=== PATIENT | female | born 1975 | race Caucasian/White ===

== ENCOUNTER 2022-01-16 22:23 | Emergency (ER) | payer OTHER ==
[2022-01-17] MEDS ORDERED: Diazepam 5 MG Tab PO ONE (00:27)
== END 2022-01-17 00:42 | disposition home or self-care (01) ==
LOC: MW.ED 22:23
DX: S13.9XXA Sprain of joints and ligaments of unspecified parts of neck, initial encounter (principal); M43.6 Torticollis; Z88.8 Allergy status to other drugs, medicaments and biological substances; Z91.040 Latex allergy status; Z88.2 Allergy status to sulfonamides; W10.9XXA Fall (on) (from) unspecified stairs and steps, initial encounter
CPT/HCPCS: 72125; 73000; 99284; A9270

== ENCOUNTER 2022-01-31 16:40 | Emergency (ER) | payer OTHER ==
[2022-01-31] MEDS ORDERED: predniSONE 20 MG Tab PO ONE (17:09)
[2022-01-31] MEDS ORDERED: diphenhydrAMINE 25 MG Cap PO ONE (17:09)
[2022-01-31] MEDS ORDERED: Famotidine 20 MG Tab PO ONE (17:10)
== END 2022-01-31 19:21 | disposition home or self-care (01) ==
LOC: MW.ED 16:40
DX: T78.2XXA Anaphylactic shock, unspecified, initial encounter (principal); F17.210 Nicotine dependence, cigarettes, uncomplicated; Z79.899 Other long term (current) drug therapy; Z91.040 Latex allergy status; Z88.2 Allergy status to sulfonamides
CPT/HCPCS: 99284; A9270

== ENCOUNTER 2022-02-25 00:34 | Emergency (ER) | payer OTHER | END 2022-02-25 02:24 | disposition home or self-care (01) | LOC: MW.ED 00:34 | DX: N81.4 Uterovaginal prolapse, unspecified (principal); F17.210 Nicotine dependence, cigarettes, uncomplicated; Z91.040 Latex allergy status; Z88.2 Allergy status to sulfonamides; Z91.048 Other nonmedicinal substance allergy status | CPT/HCPCS: 99282; 99283 ==

== ENCOUNTER 2022-04-17 06:52 | Day surgery (SDC) | payer OTHER ==
[~2022-04-17 06:52] MED LIST: Lactated Ringers 1,000 ML IV SCH
[2022-04-17] MEDS ORDERED: HYDROmorphone 1 MG/ML Syringe IVPUSH PRN ×2 (07:14→19:34)
[2022-04-17] MEDS ORDERED: Morphine 2 MG/ML SYRINGE IVPUSH PRN (07:14)
[2022-04-17] MEDS ORDERED: Metoclopramide 10 MG/2 ML SDV IVPUSH PRN (07:14)
[2022-04-17] MEDS ORDERED: Ondansetron 4 MG/2 ML SDV IVPUSH PRN (07:14)
[2022-04-17] MEDS ORDERED: Albuterol 0.083% 2.5 MG/3 ML Neb Soln NEB PRN (07:14)
[2022-04-17] MEDS ORDERED: Naloxone 0.4 MG/ML SDV IVPUSH PRN (07:14)
[2022-04-17] MEDS ORDERED: Scopolamine 1.5 MG Transdermal Patch TRDERM PRN (07:26)
[2022-04-17] MEDS ORDERED: Scopolamine 1.5 MG Transdermal Patch ONE (07:29)
[2022-04-17] MEDS ORDERED: Ropivacaine 0.5% 5 MG/ML 30 ML SDV ONE (07:33)
[2022-04-17] MEDS ORDERED: Famotidine 20 MG/2 ML SDV ONE (07:33)
[2022-04-17] MEDS ORDERED: Methylene Blue 50 MG/10 ML Ampule ONE (07:36)
[2022-04-17] MEDS ORDERED: Bupivacaine 0.25% 30 ML SDV ONE (07:37)
[2022-04-17] MEDS ORDERED: Propofol 200 MG/20 ML SDV ONE ×2 (07:46→10:31)
[2022-04-17] MEDS ORDERED: fentaNYL 250 MCG/5 ML SDV ONE ×2 (07:46→08:39)
[2022-04-17] MEDS ORDERED: fentaNYL 100 MCG/2 ML SDV ONE (09:12)
[2022-04-17] MEDS ORDERED: Fluorescein 5 ML Vial ONE (09:17)
[2022-04-17] MEDS ORDERED: Ketorolac 30 MG/ML SDV ONE (09:18)
[2022-04-17] MEDS ORDERED: Rocuronium Bromide 50 MG/5 ML Syringe ONE (09:18)
[2022-04-17] MEDS ORDERED: Sugammadex Sodium 200 MG/2 ML VIAL ONE (09:18)
[2022-04-17] MEDS ORDERED: Glycopyrrolate 0.2 MG/ML SDV ONE (09:18)
[2022-04-17] MEDS ORDERED: ePHEDrine 50 MG/ML SDV ONE (09:18)
[2022-04-17] MEDS ORDERED: Dexamethasone 4 MG/ML 5 ML MDV ONE (09:18)
[2022-04-17] MEDS ORDERED: Ondansetron 4 MG/2 ML SDV ONE (09:18)
[2022-04-17] MEDS ORDERED: ceFAZolin 2 GM Vial ONE (09:19)
[2022-04-17] MEDS ORDERED: HYDROmorphone 2 MG/ML Syringe ONE ×2 (09:47→19:39)
[2022-04-17] MEDS ORDERED: Morphine 4 MG/ML Syringe IVPUSH PRN (11:34)
[2022-04-17] MEDS ORDERED: Ibuprofen 600 MG Tab PO PRN (11:34)
[2022-04-17] MEDS ORDERED: Promethazine 25 MG/ML SDV IM PRN (11:34)
[2022-04-17] MEDS: fentaNYL 50 MCG/ML SDV IVPUSH PRN ×2 (11:34→11:47)
[2022-04-17] MEDS ORDERED: traMADol 50 MG Tab PO PRN (11:37)
[2022-04-17] MEDS ORDERED: Ketorolac 30 MG/ML SDV IVPUSH PRN (15:00)
[2022-04-17] MEDS: Ondansetron 4 MG/2 ML SDV IVPUSH PRN (19:34)
[2022-04-18] MEDS ORDERED: HYDROmorphone 2 MG/ML Syringe ONE (04:33)
[2022-04-18] MEDS: Ondansetron 4 MG/2 ML SDV IVPUSH PRN (04:42)
[2022-04-18 05:45] LABS: CARBON DIOXIDE,CO2 27.3 mmol/L (21.0-32.0)
[2022-04-18] MEDS ORDERED: HYDROmorphone 2 MG/ML Syringe IVPUSH PRN (09:00)
== END 2022-04-18 14:30 | disposition home or self-care (01) ==
LOC: MW.SDS 06:52 → MW.OB 12:34 → MW.SDS 04-18 14:30
PROVIDERS: ATTEND Obstetrics & Gynecology
DX: N83.202 Unspecified ovarian cyst, left side (principal); N83.201 Unspecified ovarian cyst, right side; N83.8 Other noninflammatory disorders of ovary, fallopian tube and broad ligament; F17.210 Nicotine dependence, cigarettes, uncomplicated; E78.5 Hyperlipidemia, unspecified; J45.909 Unspecified asthma, uncomplicated; E66.9 Obesity, unspecified; M19.90 Unspecified osteoarthritis, unspecified site; F41.9 Anxiety disorder, unspecified; Z68.37 Body mass index [BMI] 37.0-37.9, adult; Z79.899 Other long term (current) drug therapy; Z98.890 Other specified postprocedural states; Z91.040 Latex allergy status; Z88.2 Allergy status to sulfonamides
CPT/HCPCS: 00944; 36415; 64488; 80053; 85025; A9270-GY; J0131; J0690; J1100; J1170; J1885; J2270; J2405; J2704; J2795; J3010; J3490; J7030; J7120

== ENCOUNTER 2023-02-05 17:29 | Emergency (ER) | payer OTHER ==
[2023-02-05] MEDS ORDERED: Sodium Chloride 0.9% 1,000 ML IV ONE (18:09)
[2023-02-05] MEDS ORDERED: traMADol 50 MG Tab PO ONE (18:15)
[2023-02-05 18:43] LABS: BASOPHILS ABSOLUTE AUTO 0.05 K/uL (0.00-0.20); BASOPHILS PERCENT AUTO 0.6 % (0.0-1.0); EOSINOPHILS ABSOLUTE AUTO 0.12 K/uL (0.00-0.45); EOSINOPHILS PERCENT AUTO 1.4 % (0.0-6.0); HEMATOCRIT 44.1 % (37.0-47.0); HEMOGLOBIN 15.5 g/dL (12.0-16.0); IMMATURE GRAN ABSOLUTE AUTO 0.03 K/uL (0.00-0.05); IMMATURE GRAN PERCENT AUTO 0.4 % (0.0-0.4); LYMPHOCYTES ABSOLUTE AUTO 2.62 K/uL (1.00-4.80); LYMPHOCYTES PERCENT AUTO 31.4 % (24.0-44.0); MEAN CORPUSCULAR HGB CONC 35.1 g/dL (32.0-36.0); MEAN CORPUSCULAR VOLUME 91.1 fL (83.0-99.0); MEAN PLATELET VOLUME 9.8 fL (9.4-12.3); MONOCYTES ABSOLUTE AUTO 0.39 K/uL (0.00-0.80); MONOCYTES PERCENT AUTO 4.7 % (0.0-8.0); NEUTROPHILS ABSOLUTE AUTO 5.14 K/uL (1.80-7.70); NEUTROPHILS PERCENT AUTO 61.5 % (41.0-71.0); PLATELET COUNT,PLT 259 K/uL (150-400); RED BLOOD CELL COUNT 4.84 M/uL (4.10-5.30); WHITE BLOOD CELL COUNT,WBC 8.35 K/uL (3.9-11.3)
[2023-02-05 18:45] LABS: APPEARANCE,URINE CLEAR; BILIRUBIN,URINE NEGATIVE (NEGATIVE); COLOR,URINE YELLOW; GLUCOSE,URINE NEGATIVE (NEGATIVE); KETONES,URINE NEGATIVE (NEGATIVE); LEUKOCYTE ESTERASE,URINE NEGATIVE (NEGATIVE); NITRITE,URINE NEGATIVE (NEGATIVE); OCCULT BLOOD,URINE NEGATIVE (NEGATIVE); PH,URINE 6.5 (5.0-8.0); PROTEIN,URINE NEGATIVE (NEGATIVE); UROBILINOGEN,URINE 0.2 EU/dL (<2.0)
[2023-02-05 19:06] LABS: A/G RATIO 0.9 (0.9-1.6); ALBUMIN 3.9 g/dL (3.4-5.0); BILIRUBIN TOTAL 0.3 mg/dL (0.2-1.0); CALCIUM 9.6 mg/dL (8.5-10.1); CARBON DIOXIDE,CO2 25.4 mmol/L (21.0-32.0); CREATININE 0.9 mg/dL (0.6-1.0); EST CRCL DRUG DOSING (CG) 62.43 mL/min; MAGNESIUM 2.3 mg/dL (1.8-2.4); POTASSIUM,K 4.3 mmol/L (3.5-5.1); PROTEIN TOTAL,TP 8.4 g/dL (6.4-8.2)
[2023-02-05 19:12] LABS: LACTIC ACID 0.6 mmol/L (0.4-2.0)
[2023-02-05 19:20] LABS: CORONAVIRUS COVID-19 NAA NEGATIVE (NEGATIVE); INFLUENZA A NAA NEGATIVE (NEGATIVE); INFLUENZA B NAA NEGATIVE (NEGATIVE)
[2023-02-05] MEDS ORDERED: Iopamidol 755 Mg/ML 100 ML Bottle IVPUSH ONE (19:32)
[2023-02-05] MEDS ORDERED: Ondansetron 4 MG/2 ML SDV IVPUSH ONE (20:20)
[2023-02-05] MEDS ORDERED: Dicyclomine 10 MG Cap PO ONE (20:20)
[2023-02-05] MEDS ORDERED: Ondansetron 4 MG Tab.DIS PO ONE (20:22)
[2023-02-05] MEDS ORDERED: Metoclopramide 10 MG/2 ML SDV IVPUSH ONE (21:02)
== END 2023-02-05 21:16 | disposition home or self-care (01) ==
LOC: MW.ED 17:29
DX: K52.9 Noninfective gastroenteritis and colitis, unspecified (principal); J45.909 Unspecified asthma, uncomplicated; K21.9 Gastro-esophageal reflux disease without esophagitis; E66.9 Obesity, unspecified; F17.210 Nicotine dependence, cigarettes, uncomplicated; Z90.710 Acquired absence of both cervix and uterus; Z79.899 Other long term (current) drug therapy; Z88.2 Allergy status to sulfonamides; Z88.1 Allergy status to other antibiotic agents; Z91.040 Latex allergy status; Z88.6 Allergy status to analgesic agent; Z68.39 Body mass index [BMI] 39.0-39.9, adult
CPT/HCPCS: 0240U; 36415; 74177; 80053; 81003; 83605; 83690; 83735; 85025; 96360; 99284; A9270; J7030; Q9967

== ENCOUNTER 2025-01-16 16:22 | Emergency (ER) | payer SELFPAY ==
[2025-01-16 17:32] LABS: BASOPHILS ABSOLUTE AUTO 0.05 K/uL (0.00-0.20); BASOPHILS PERCENT AUTO 0.5 % (0.0-1.0); EOSINOPHILS ABSOLUTE AUTO 0.08 K/uL (0.00-0.45); EOSINOPHILS PERCENT AUTO 0.8 % (0.0-6.0); IMMATURE GRAN ABSOLUTE AUTO 0.03 K/uL (0.00-0.05); IMMATURE GRAN PERCENT AUTO 0.3 % (0.0-0.4); LYMPHOCYTES ABSOLUTE AUTO 2.77 K/uL (1.00-4.80); LYMPHOCYTES PERCENT AUTO 27.5 % (24.0-44.0); MEAN PLATELET VOLUME 9.6 fL (9.4-12.3); MONOCYTES ABSOLUTE AUTO 0.40 K/uL (0.00-0.80); MONOCYTES PERCENT AUTO 4.0 % (0.0-8.0); NEUTROPHILS ABSOLUTE AUTO 6.74 K/uL (1.80-7.70); NEUTROPHILS PERCENT AUTO 66.9 % (41.0-71.0); NRBC ABSOLUTE 0.00 K/uL (0.00-0.02); NRBC PERCENT 0.0 /100WBC (0.0-0.2); PLATELET COUNT,PLT 267 K/uL (150-400); RED BLOOD CELL COUNT 4.89 M/uL (4.10-5.30); WHITE BLOOD CELL COUNT,WBC 10.07 K/uL (3.9-11.3)
[2025-01-16] MEDS: Ondansetron 4 MG/2 ML SDV IVPUSH ONE (17:32)
[2025-01-16] MEDS: methylPREDNISolone Sodium Succinate 125 MG/2 ML SDV IVPUSH ONE (17:32)
[2025-01-16 18:47] LABS: A/G RATIO 0.9 (0.9-1.6); ALANINE AMINOTRANSFERASE,ALT 57 IU/L (14-63); ASPARTATE AMNIOTRANSFERASE,AST 29 IU/L (15-37); BILIRUBIN TOTAL 0.3 mg/dL (0.2-1.0); BLOOD UREA NITROGEN,BUN 20 mg/dL (7.0-18.0); CARBON DIOXIDE,CO2 27.5 mmol/L (21.0-32.0); CHLORIDE,CL 102 mmol/L (98-107); CREATININE 1.0 mg/dL (0.6-1.0); GLUCOSE RANDOM 100 mg/dL (74-106); POTASSIUM,K 3.8 mmol/L (3.5-5.1); PROTEIN TOTAL,TP 8.3 g/dL (6.4-8.2); SODIUM,NA 140 mmol/L (136-145)
[2025-01-16 18:48] LABS: ESTIMATED GFR 70 mL/min (>60)
== END 2025-01-16 18:43 | disposition home or self-care (01) ==
LOC: MW.ED 16:22
DX: T78.40XA Allergy, unspecified, initial encounter (principal); R03.0 Elevated blood-pressure reading, without diagnosis of hypertension; E66.9 Obesity, unspecified; F17.200 Nicotine dependence, unspecified, uncomplicated; Z79.899 Other long term (current) drug therapy; Z91.040 Latex allergy status; Z88.2 Allergy status to sulfonamides; Z88.5 Allergy status to narcotic agent; Z90.710 Acquired absence of both cervix and uterus
CPT/HCPCS: 36415; 70450; 70450-26; 80053; 84702; 85025; 96361; 96374; 96375; 99283; 99284-25; A9270-GY; J2405; J2919; J7030